=== PATIENT | female | born 1965 | race Caucasian/White ===

== ENCOUNTER 2023-08-26 16:21 | Emergency (ER) | payer BC, SELFPAY ==
[2023-08-26 16:23] VITALS: BP 124/72
--- NOTE | 2023-08-26 17:20 | ED.GENMED ---
History of Present Illness
General
Chief Complaint: Musculo-Skeletal Complaint
Source: patient
Exam Limitations: none
Time Seen by Provider: 08/26/23 17:01
Nursing documentation reviewed up to this point in time: agreed with
History of Present Illness
History of Present Illness:
58-year-old female with history as documented presents to the emergency room for evaluation of a wrist injury after a fall. Patient reports that she was digging with a shovel and lost her balance and fell backwards with her left arm outstretched
behind her. She says that she landed on the left hand outstretched and injured her left wrist. She denies any other injuries. Denies any head trauma. Denies any other complaints.
Review of Systems
Review of Systems
All Other Systems: ROS reviewed and negative except as documented in HPI and ROS
Musculoskeletal: Reports other (Left wrist pain)
Phy Exam
Physical Exam
Physical Exam:
General: Well appearing and non-toxic
HEENT: protecting airway
Neck: appears supple
CV: No evidence of cyanosis; she does have a strong left radial pulse and good distal perfusion the left upper extremity
Resp: No accessory muscle use
Abd: Non-distended
Extremities: No deformity of the left upper extremity; she has localized tenderness over the dorsum of the wrist near the distal radius and ulna on the left wrist, no tenderness in the anatomic snuffbox, no tenderness of the hand; she is able to
make a fist with the left hand, is able to flex wrist but has significant pain with attempts at extension of the wrist; she is able to supinate and pronate although has pain with pronation; she has no tenderness to the left elbow or shoulder and
full range of motion in these joints without pain; rest of extremities appear atraumatic
Neuro: Alert, motor and sensory function intact radial, median, ulnar nerve distribution
Psych: Normal affect
Skin: Intact
Scores
Heart Failure Risk
Heart Failure Risk Score: Not Applicable
Heart Score for Chest Pain Patients
STEMI patient?: Not applicable
Withdrawal Assessment of Alcohol
Withdrawal Assessment Completed?: Not applicable
Course
Orders/Labs/Results
Orders:
Orders
08/26/23 16:28
CR Wrist - Left Min 3 Views Urgent
Comment:
Reason For Exam: injury
Vital Signs
Initial and Last Documented VS:
Initial Vital Signs
Temp Pulse Resp BP Pulse Ox
37.1 C 85 16 124/72 99
08/26/23 16:23 08/26/23 16:23 08/26/23 16:23 08/26/23 16:23 08/26/23 16:23
Last Documented Vital Signs
Temp Pulse Resp BP Pulse Ox
37.1 C 85 16 124/72 99
08/26/23 16:23 08/26/23 16:23 08/26/23 16:23 08/26/23 16:23 08/26/23 16:23
MDM/Problems Addressed
Differential Diagnosis Includes:
Wrist pain, wrist fracture
MDM/Problems Addressed:
58-year-old female presents for evaluation after a mechanical fall onto an outstretched left hand. Complaining of pain in the left wrist. No other injuries. Vitals normal. Exam as above. Will check an x-ray. Offered Motrin patient declined.
Reassess after the above.
X-ray reviewed by me shows no acute fracture. Will plan to place in a supportive splint for suspected wrist sprain. Provide referral to orthopedics as needed with persistent symptoms. Advised regarding RICE therapy. All questions answered.
Prior to discharge final radiology report was reviewed it did show questionable nondisplaced fracture of the distal radius. Patient was placed in a radial gutter splint. Spoke with patient, advised to follow-up with orthopedics.
*Radiology
Radiology exam reviewed: preliminary read by ED provider
*Pulse Oximetry
Patient hypoxic: no
*Critical Care Note
Total Time (30-74mins, 75-104mins- exclusive of procedures): Not Applicable
Data Reviewed
Source: patient
ED Attending Note
-
Portions of this chart may have been created with voice recognition software.� Occasional wrong word or��sound alike� substitutions may have occurred due to the inherent limitations of voice recognition software.
Discharge Plan
Departure
Patient Disposition: Home (Routine Discharge)
Date of Disposition: 08/26/23
Time of Disposition: 17:39
Patient with high blood pressure during this ER visit?: No
Discharge Problem:
Injury of wrist, left
Instructions: Sprain (DC), RICE Therapy
Prescriptions:
No Action
ondansetron 4 mg tablet,disintegrating
4 mg PO Q8H PRN (Reason: nausea and vomiting) Qty: 10 0RF
Referrals:
Abel Crenshaw MD [Active] - As needed (Orthopedics, as needed for persistent symptoms)
Stand Alone Forms: Return to Work
Activity Restrictions/Additional Instructions:
Thank you for visiting the Emergency Department at [facility].
1. Please schedule a follow up appointment as directed. Call first thing tomorrow morning to make an appointment.
2. If indicated, please take your medications as instructed and indicated on discharge paperwork.
3. If any of your symptoms do not improve, or persist, or become more severe within 6-12 hours, please return to the emergency department for further care.
4. Please return to the emergency department if you develop a headache, neck pain/stiffness, fever greater than 100.4F, chest pain, shortness of breath, persistent nausea, vomiting, slurred speech, difficulty walking, numbness/tingling, weakness,
signs of infection or any other symptoms that are worrisome to you.
Please call [phone] if you have any questions.
Interventions
Interventions:
*General Assessment Last Done: 08/26/23 16:23
ED- Fall Risk Assessment Last Done: 08/26/23 17:45
*ED COVID-19 Vaccine History Last Done: 08/26/23 16:23
ED-Musculoskeletal Assessment Last Done: 08/26/23 17:45
Discharge Date and Time
Print Language: SLOVAK
== END 2023-08-26 17:54 | disposition home or self-care (01) ==
LOC: EMR 16:21
PROVIDERS: EMERGENCY PHYSICIAN Emergency Medicine; FAMILY PHYSICIAN Nurse Practitioner
DX: S52.502D Unspecified fracture of the lower end of left radius, subsequent encounter for closed fracture with routine healing (principal); W18.39XD Other fall on same level, subsequent encounter; Y93.H1 Activity, digging, shoveling and raking; M25.532 Pain in left wrist
CPT/HCPCS: 99283; 29125; 73110